=== PATIENT | female | born 1965 ===

== ENCOUNTER 2017-11-07 12:39 | Emergency (ER) | payer OTHER ==
[~2017-11-07] VITALS: Ht 167.6 cm; Wt 83.9 kg
[~2017-11-07 12:39] MED LIST: Ativan1 MG PO; CHLO25 PO; Dilantin 100 m100 MG PO; FOLI1 PO; Hair, Skin & N1 EACH PO; KETO10 PO; LEVE500 PO; NALT50 PO; Norco 5-325 Ta1 EACH PO; OLOP.1OPSO BOTHEYES; OMEP20ER PO; OXYACE5T PO; PROM25 PO; SERT50 PO; THIA100 PO; TRAZ50 PO; VENL150ER PO; Zoloft100 MG PO
[2017-11-07] MEDS ORDERED: POTCHL10ER (13:12)
[2017-11-07] MEDS ORDERED: NAPR500 (13:13)
[2017-11-07] MEDS ORDERED: FURO20 (13:13)
[2017-11-07] MEDS ORDERED: METPRE4DP PO (13:16)
[2017-11-07] MEDS ORDERED: LIDO700A20 TOP (17:02)
== END 2017-11-07 13:40 | disposition home or self-care (01) ==
LOC: ER 12:39
DX: M54.32 Sciatica, left side (principal); Z88.8 Allergy status to other drugs, medicaments and biological substances; Z79.899 Other long term (current) drug therapy; K21.9 Gastro-esophageal reflux disease without esophagitis; I10 Essential (primary) hypertension
CPT/HCPCS: 96372; 99283; J1885